=== PATIENT | male | born 1940 | race Caucasian/White ===

== ENCOUNTER → 2016-11-08 | Outpatient (CLI) | payer OTHER | LOC: BHCLAF 09:00 | PROVIDERS: ATTEND Internal Medicine Cardiovascular Disease | DX: I25.10 Atherosclerotic heart disease of native coronary artery without angina pectoris (principal); I71.2 Thoracic aortic aneurysm, without rupture; I34.0 Nonrheumatic mitral (valve) insufficiency; I35.0 Nonrheumatic aortic (valve) stenosis ==

== ENCOUNTER → 2017-01-10 | Outpatient (CLI) | payer OTHER | LOC: BHFA 11:30 | PROVIDERS: ATTEND Internal Medicine Cardiovascular Disease | DX: I71.9 Aortic aneurysm of unspecified site, without rupture (principal) ==

== ENCOUNTER → 2017-01-25 | Outpatient (CLI) | payer OTHER | LOC: BHFA 09:00 | PROVIDERS: ATTEND Internal Medicine Cardiovascular Disease | DX: I25.10 Atherosclerotic heart disease of native coronary artery without angina pectoris (principal) | CPT/HCPCS: 78452; 93017; A9500; J2785 ==

== ENCOUNTER 2017-07-25 21:06 | Observation (INO) | payer OTHER ==
--- NOTE | 2017-07-25 21:32 | CPEKG ---
Heart Rate: 65 RR Interval: 923 P-R Interval: 224 QRSD Interval: 192 QT Interval: 484 QTC Interval: 504 P [place]: 24 QRS [place]: 82 T Wave [place]: 17 EKG Severity - ABNORMAL ECG - EKG Impression: SINUS RHYTHM EKG Impression: FIRST DEGREE AV BLOCK EKG Impression: IVCD, CONSIDER ATYPICAL LBBB Electronically Signed By: Paul iJ 26-Jul-2017 06:23:00
--- NOTE | 2017-07-25 21:50 | EDPHY ---
H & P Stated Complaint: Tachycardia - Resolved, Anxiety HPI/ROS: HPI CHIEF COMPLAINT: Tachycardia, anxiety now resolved HISTORY OF PRESENT ILLNESS: This patient is a very pleasant 76-year-old male, he presents emergency room with tachycardia is resolved. Patient has significant medical history for hypertension, hyperlipidemia, and has never had a cardiac arrhythmia. Denies having heart disease. In fact he tells me has a very low calcium score. He presents emergency room after states around 830 this evening or approximately an hour and half ago he developed sudden-onset fast heart rate. He obtained his pulse ox and was reading 150 beats per minute. He could feel his heart racing but denies any other associated symptoms specifically denies shortness of breath, nausea, diaphoresis arm or neck pain or vomiting. He does report that he may have had some very mild chest tightness when he noticed his heart rate was very fast in the 150s. He reports that it was regular in the 150s. Not irregular. He did not feel lightheaded. It lasted approximately 45 minutes. And then upon arrival to the emergency room he states it went away. He denies being sick recently. He denies pleuritic pain, shortness of breath, chest pain. Denies recent illness. Past Medical History: CAD (by EBCT) LOW CALCIUM SCORE: 47 Hypertension, hyperlipidemia, thoracic aortic aneurysm 4.4. Known left bundle branch block. Aortic stenosis, mitral regurg, prostate CA Past Surgical History: Denies any recent surgery. Has had ankle surgery Social History: Denies daily use drugs alcohol tobacco. He is retired Supervisor [employer] Family History: Noncontributory ROS REVIEW OF SYSTEMS: A comprehensive 10 point review of systems is otherwise negative aside from elements mentioned in the history of present illness. Exam Constitutional appears well nontoxic, pleasant, no distress, triage nursing summary reviewed, vital signs reviewed, awake/alert. Eyes normal conjunctivae and sclera, EOMI, PERRLA. HENT normal inspection, atraumatic, moist mucus membranes, no epistaxis, neck supple/ no meningismus, no raccoon eyes. Respiratory clear to auscultation bilaterally, normal breath sounds, no respiratory distress, no wheezing. Cardiovascular rate normal, regular rhythm, no murmur, no edema, distal pulses normal. Gastrointestinal soft, non-tender, no rebound, no guarding, normal bowel sounds, no distension, no pulsatile mass. Genitourinary no CVA tenderness. Musculoskeletal no midline vertebral tenderness, full range of motion, no calf swelling, no tenderness of extremities, no meningismus, good pulses, neurovascularly intact. Skin pink, warm, & dry, no rash, skin atraumatic. Neurologic awake, alert and oriented x 3, AAOx3, moves all 4 extremities equally, motor intact, sensory intact, CN II-XII intact, normal cerebellar, normal vision, normal speech. Psychiatric normal mood/affect. Heme/Lymph/Immune no lymphadenopathy. Differential diagnosis includes but is not limited to: Cardiac arrhythmia including SVT, atrial flutter with a 2-1 block, AFib, AVR and T, V-tach, VFib, ACS, atypical chest pain, pneumothorax, pneumonia, pulmonary embolism, aortic dissection, congestive heart failure, tumor, musculoskeletal pain, esophageal pain, GERD, peptic ulcer disease, pancreatitis Medical Decision Making: Plan for this patient has no complaints at this time is resting comfortably. He had tachycardia prior to arrival. He states his regular at 150s. We will obtain blood work, EKG and place him on a director of cardiac rehabilitation. Troponin. Re-evaluate Re-evaluation: EKG interpretation by me on record in [facility] [employer] system. Impression time of EKG 0, this is sinus rhythm rate of 65. First-degree AV block present. TN interval 224. Left bundle-branch block present. 2214: I did review this patient's [facility] heart note on 01/13/2017. He was seen by Dr. Diego. 2350: Patient resting comfortably. No complaints. Discussed at length about CT angiogram of his chest with in the setting of tachycardia that is now resolved and a positive D-dimer. Additionally patient has a thoracic aortic aneurysm. After great discussion risk versus benefit of the CT scan. Patient agrees for CT angiogram of his chest this will give this information to rule out pulmonary embolism, additionally evaluate his thoracic aortic aneurysm. I think dissection and ruptured aneurysm is unlikely. CT angiogram of the chest with IV contrast called to me by Dr. Stoney Pearson. This shows no pulmonary embolism. This shows a stable aortic thoracic aneurysm of 4.3 cm. Previous scan showed 4.4 cm. Additionally there very subtle radial lucencies mainly in the sternum. Pretty much unchanged from the 2015 scan. However will notify patient about this to have outpatient follow- up. Additionally there is a left thyroid nodule that the patient is to follow- up. EKG interpretation by me on record in [facility] [employer] system. Impression time of EKG 0030. This is a repeat EKG sinus rhythm rate of 52. First-degree AV block. TN interval 236. Left bundle-branch block present. No acute ischemia. EKG is unchanged from previous EKG. 0130: This patient's 2nd troponin is 0.032. This is still below the limit of abnormal. However it has went up slightly. The patient remains hemodynamically stable no acute distress without any chest pain or shortness of breath. I had a long discussion about this and we agreed to repeat another troponin an hour. If this goes down her stays the same I will allow him to go home again he has no chest pain or shortness of breath he feels fine. This 2nd troponin was approximately a 5 hour troponin from symptom onset. 0339AM: Spoke with Dr. William Whipple, With Cardiology, discussed this case at length with him. After extensive discussion about his troponins and presentation Dr. Whipple thought it was reasonable for this patient be admitted for observation for Dr. Burton to see today. I gave the patient the option of going home or coming into the hospital the patient feels more comfortable coming the hospital given the circumstance of this whole scenario. Patient be admitted for cardiology to evaluate. The patient has been hemodynamically stable here. In sinus rhythm with a left bundle-branch block. With no chest pain. After further discussion with him he did report to me that he had some epigastric discomfort during this tachycardia event that was not captured here. He really denies chest pain he does state that he may have had some chest tightness. Plan will be for observation cardiology to evaluate. Serial troponins. 0342: Spoke with Dr. Yanes Who agrees to admit. Source: Patient - Personal History Current Tetanus Diphtheria and Acellular Pertussis (TDAP): Yes - Medical/Surgical History Hx Asthma: No Hx Chronic Respiratory Disease: No Hx Diabetes: No Hx Cardiac Disease: Yes Hx Renal Disease: No Hx Cirrhosis: No Hx Alcoholism: No Hx HIV/AIDS: No Hx Splenectomy or Spleen Trauma: No Other PMH: Aortic Annurysm, High Cholesterol, Hypertension - Social History Smoking Status: Former smoker Constitutional: Initial Vital Signs Temperature (C) 36.8 C 07/25/17 21:11 Heart Rate 67 07/25/17 21:11 Respiratory Rate 18 07/25/17 21:11 Blood Pressure 121/87 H 07/25/17 21:11 O2 Sat (%) 93 07/25/17 21:11 O2 Delivery Mode Room Air Allergies/Adverse Reactions: cat dander Allergy (Verified 07/25/17 21:09) lidocaine Allergy (Verified 07/25/17 21:09) mold Allergy (Verified 07/25/17 21:09) Home Medications: Medication Instructions Recorded Hydrochlorothiazide 08/17/11 oxyCONTIN 08/17/11 Hydrochlorothiazide 07/25/17 Losartan Potassium 07/25/17 SIMVASTATIN 07/25/17 Medical Decision Making - Diagnostics Imaging Results: Imaging Impressions Chest X-Ray 07/25/17 22:10 Impression: No acute findings in the chest. Chest/Thorax CTA 07/25/17 23:03 Impression: 1. No visible pulmonary embolus. 2. Stable mild dilatation of the ascending aorta, measuring 4.3 cm without dissection. 3. 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 4. Equivocal tiny lucent osseous lesions, with interval stability suggesting a benign etiology, however metastasis or myeloma could have a similar appearance. 5. Coronary artery atherosclerosis. 6. Minimal increase in size of a 1.9 cm left thyroid nodule. Thyroid ultrasound is recommended for further evaluation. 7. Additional findings as above. Findings discussed with Paul Ji MD 07/25/2017 at 23:52. - Data Points Laboratory Results: Laboratory Results 07/25/17 22:20 07/25/17 22:20 07/26/17 07/26/17 07/25/17 02:36 00:38 22:20 WBC RBC Hgb Hct MCV MCH MCHC RDW Plt Count MPV Neut % (Auto) Lymph % (Auto) [place] % (Auto) Eos % (Auto) Baso % (Auto) Nucleat RBC Rel Count Absolute Neuts (auto) Absolute Lymphs (auto) Absolute Monos (auto) Absolute Eos (auto) Absolute Basos (auto) Absolute Nucleated RBC Immature Gran % Immature Gran # PT INR APTT D-Dimer Sodium 137 mEq/L mEq/L (134-144) Potassium 3.8 mEq/L mEq/L (3.5-5.2) Chloride 97 mEq/L mEq/L (97-110) Carbon Dioxide 24 mEq/l mEq/l (22-31) Anion Gap 16 mEq/L mEq/L (8-16) BUN 22 mg/dL mg/dL (7-23) Creatinine 0.8 mg/dL mg/dL (0.7-1.3) Estimated GFR > 60 Glucose 90 mg/dL mg/dL (70-100) Calcium 9.5 mg/dL mg/dL (8.5-10.4) Magnesium 1.8 mg/dL mg/dL (1.6-2.3) Total Bilirubin 0.5 mg/dL mg/dL (0.1-1.4) Conjugated Bilirubin 0.0 mg/dL mg/dL (0.0-0.5) Unconjugated Bilirubin 0.5 mg/dL mg/dL (0.0-1.1) AST 32 IU/L IU/L (17-59) ALT 40 IU/L IU/L (21-72) Alkaline Phosphatase 52 IU/L IU/L (38-126) Creatine Kinase 76 IU/L IU/L (0-224) CK-MB (CK-2) Fraction 1.57 ng/mL ng/mL (0.00-3.19) Troponin I 0.036 ng/mL H ng/mL 0.032 ng/mL ng/mL < 0.012 ng/mL ng/mL (0.000-0.034) (0.000-0.034) (0.000-0.034) NT-Pro-B Natriuret Pep 136 pg/mL pg/mL (0-450) Total Protein 6.5 g/dL g/dL (6.3-8.2) Albumin 4.0 g/dL g/dL (3.5-5.0) TSH 2.530 uIU/mL uIU/mL (0.465-4.680) 07/25/17 07/25/17 22:20 22:20 WBC 5.82 10^3/uL 10^3/uL (3.80-9.50) RBC 4.55 10^6/uL 10^6/uL (4.40-6.38) Hgb 14.9 g/dL g/dL (13.7-17.5) Hct 42.2 % % (40.0-51.0) MCV 92.7 fL fL (81.5-99.8) MCH 32.7 pg pg (27.9-34.1) MCHC 35.3 g/dL g/dL (32.4-36.7) RDW 14.1 % % (11.5-15.2) Plt Count 199 10^3/uL 10^3/uL (150-400) MPV 9.9 fL fL (8.7-11.7) Neut % (Auto) 52.7 % % (39.3-74.2) Lymph % (Auto) 36.4 % % (15.0-45.0) [place] % (Auto) 8.6 % % (4.5-13.0) Eos % (Auto) 1.2 % % (0.6-7.6) Baso % (Auto) 0.9 % % (0.3-1.7) Nucleat RBC Rel Count 0.0 % % (0.0-0.2) Absolute Neuts (auto) 3.07 10^3/uL 10^3/uL (1.70-6.50) Absolute Lymphs (auto) 2.12 10^3/uL 10^3/uL (1.00-3.00) Absolute Monos (auto) 0.50 10^3/uL 10^3/uL (0.30-0.80) Absolute Eos (auto) 0.07 10^3/uL 10^3/uL (0.03-0.40) Absolute Basos (auto) 0.05 10^3/uL 10^3/uL (0.02-0.10) Absolute Nucleated RBC 0.00 10^3/uL 10^3/uL (0-0.01) Immature Gran % 0.2 % % (0.0-1.1) Immature Gran # 0.01 10^3/uL 10^3/uL (0.00-0.10) PT 13.7 SEC SEC (12.0-15.0) INR 1.06 (0.83-1.16) APTT 35.1 SEC SEC (23.0-38.0) D-Dimer 0.77 ug/mLFEU H ug/mLFEU (0.00-0.50) Sodium Potassium Chloride Carbon Dioxide Anion Gap BUN Creatinine Estimated GFR Glucose Calcium Magnesium Total Bilirubin Conjugated Bilirubin Unconjugated Bilirubin AST ALT Alkaline Phosphatase Creatine Kinase CK-MB (CK-2) Fraction Troponin I NT-Pro-B Natriuret Pep Total Protein Albumin TSH Medications Given: Discontinued Medications Sodium Chloride (Ns) 1,000 mls @ 0 mls/hr IV EDNOW ONE; Wide Open PRN Reason: Protocol Stop: 07/25/17 22:11 Last Admin: 07/25/17 23:06 Dose: 1,000 mls Departure - Departure Disposition: Home, Routine, Self-Care Clinical Impression: Tachycardia, Thyroid nodule, Troponin I above reference range Condition: Good Instructions: Thyroid Nodules (ED), Tachycardia (ED) Additional Instructions: 1. Please follow up with her primary care doctor physician about the left thyroid nodule. 2. Additionally please follow up with the radiolucency seen mainly in her sternum these are stable from 2015. 3. Return immediately to the emergency room if he develops any worsening symptoms includes chest pain, shortness of breath, fast heart rate or you have a syncopal episode. 4. I do recommend distally follow up with Cardiology. Referrals: NICOLE ARIAS [Other] - As per Instructions Jonathan Jurado MD [Non Staff Provider ()] - As per Instructions
[2017-07-25] MEDS ORDERED: NS 1,000 ML IV ONE (22:10)
[2017-07-25 22:38] LABS: % IMMATURE GRANULYOCYTES 0.2 % (0.0-1.1); ABSOLUTE IMMATURE GRANULOCYTES 0.01 10^3/uL (0.00-0.10); ADD DIFF? NO; ADD MORPH? NO; ADD SCAN? NO; ATYPICAL LYMPHOCYTE FLAG 0 (0-99); FRAGMENT RBC FLAG 0 (0-99); HEMATOCRIT 42.2 % (40.0-51.0); HEMOGLOBIN 14.9 g/dL (13.7-17.5); LEFT SHIFT FLG 0 (0-99); LIPEMIA HEMOLYSIS FLAG 90 (0-99); MEAN CELL HEMOGLOBIN 32.7 pg (27.9-34.1); MEAN CELL HEMOGLOBIN CONCENTR. 35.3 g/dL (32.4-36.7); MEAN CELL VOLUME 92.7 fL (81.5-99.8); MEAN PLATELET VOLUME 9.9 fL (8.7-11.7); PLATELET CLUMPS FLAG 0 (0-99); PLATELET COUNT 199 10^3/uL (150-400); RED BLOOD CELL COUNT 4.55 10^6/uL (4.40-6.38); RED CELL DISTRIBUTION WIDTH 14.1 % (11.5-15.2)
[2017-07-25 22:48] LABS: INR 1.06 (0.83-1.16); PROTIME(PATIENT) 13.7 SEC (12.0-15.0)
[2017-07-25 22:49] LABS: APTT 35.1 SEC (23.0-38.0)
[2017-07-25 22:50] LABS: ALANINE AMINOTRANSFERASE 40 IU/L (21-72); ALKALINE PHOSPHATASE 52 IU/L (38-126); ANION GAP 16 mEq/L (8-16); ASPARTATE AMINOTRANSFERASE 32 IU/L (17-59); BILIRUBIN,TOTAL 0.5 mg/dL (0.1-1.4); BILIRUBIN-UNCONJUGATED 0.5 mg/dL (0.0-1.1); CALCIUM 9.5 mg/dL (8.5-10.4); CARBON DIOXIDE 24 mEq/l (22-31); CHLORIDE 97 mEq/L (97-110); CREATININE 0.8 mg/dL (0.7-1.3); GLOMERULAR FILTRATION RATE > 60; GLUCOSE 90 mg/dL (70-100); MAGNESIUM 1.8 mg/dL (1.6-2.3); POTASSIUM 3.8 mEq/L (3.5-5.2); SODIUM 137 mEq/L (134-144); TOTAL PROTEIN 6.5 g/dL (6.3-8.2)
[2017-07-25 23:03] LABS: CREATINE KINASE-MB FRACTION 1.57 ng/mL (0.00-3.19); TROPONIN I < 0.012 ng/mL (0.000-0.034)
[2017-07-25] MEDS ORDERED: IOPAMIDOL (ISOVUE 370) 100 ML BTL IV ONE (23:13)
--- NOTE | 2017-07-26 00:38 | CPEKG ---
Heart Rate: 52 RR Interval: 1154 P-R Interval: 236 QRSD Interval: 186 QT Interval: 512 QTC Interval: 477 P [place]: 57 QRS [place]: -6 T Wave [place]: 45 EKG Severity - ABNORMAL ECG - EKG Impression: SINUS RHYTHM EKG Impression: FIRST DEGREE AV BLOCK EKG Impression: LEFT BUNDLE BRANCH BLOCK Electronically Signed By: Paul Ji 26-Jul-2017 06:23:00
[2017-07-26 03:01] LABS: TROPONIN I 0.036 ng/mL (0.000-0.034)
[2017-07-26] MEDS ORDERED: ONDANSETRON DISINTEGRATING 4 MG TAB PO PRN (03:39)
[2017-07-26] MEDS ORDERED: ACETAMINOPHEN 325 MG TAB PO PRN (03:39)
[2017-07-26] MEDS ORDERED: ONDANSETRON 4 MG/2 ML VIAL IVP PRN (03:39)
[2017-07-26] MEDS ORDERED: diphenhydrAMINE 25 MG CAP PO PRN (03:56)
--- NOTE | 2017-07-26 03:59 | PDGENHP ---
History and Physical - Chief Complaint Tachycardia - History of Present Illness 76 yo M w/ hx of HTN presents after stint of tachycardia. Patient was at home when he noticed a rapid heart rate. He used a portable pulse ox to note his HR was in the 150 range with normal oxygenation for about 30 minutes. This has not happened in the past and he has no past cardiac history aside from well controlled HTN and HLD. In the ED troponin kb to .036 and ECG had only known LBBB. ED physician discussed with business analyst sales operations merchandising coordinator who wished patient be admitted for observation. History Information - Allergies/Home Medication List Allergies/Adverse Reactions: cat dander Allergy (Verified 07/25/17 21:09) lidocaine Allergy (Verified 07/25/17 21:09) mold Allergy (Verified 07/25/17 21:09) Home Medications: Hydrochlorothiazide 08/17/11 [Last Taken Unknown] oxyCONTIN 08/17/11 [Last Taken Unknown] Hydrochlorothiazide 07/25/17 [Last Taken Unknown] Losartan Potassium 07/25/17 [Last Taken Unknown] SIMVASTATIN 07/25/17 [Last Taken Unknown] I have personally reviewed and updated: family history, medical history - Past Medical History hypertension, hyperlipidemia - Family History Positive for: cancer - Social History Smoking Status: Former smoker Review of Systems Review of Systems: ROS: 10pt was reviewed & negative except for what was stated in HPI & below Physical Exam Physical Exam: Temp Pulse Resp BP Pulse Ox 36.8 C 53 L 18 127/84 H 94 07/25/17 21:11 07/26/17 03:34 07/26/17 03:34 07/26/17 03:34 07/26/17 03:34 Constitutional: no apparent distress, appears nourished Eyes: PERRL, EOMI Ears, Nose, Mouth, Throat: moist mucous membranes, no oral mucosal ulcers Cardiovascular: regular rate and rhythym, no murmur, rub, or gallop, other (S4) , No JVD, No edema Respiratory: no respiratory distress, clear to auscultation Gastrointestinal: normoactive bowel sounds, soft, non-tender abdomen Skin: warm, normal color Musculoskeletal: full muscle strength, no muscle tenderness Neurologic: AAOx3, CN II-XII Intact Psychiatric: interacting appropriately, not anxious Lab Data & Imaging Review 07/25/17 22:20 07/25/17 22:20 WBC 5.82 10^3/uL (3.80-9.50) 07/25/17 22:20 RBC 4.55 10^6/uL (4.40-6.38) 07/25/17 22:20 Hgb 14.9 g/dL (13.7-17.5) 07/25/17 22:20 Hct 42.2 % (40.0-51.0) 07/25/17 22:20 MCV 92.7 fL (81.5-99.8) 07/25/17 22:20 MCH 32.7 pg (27.9-34.1) 07/25/17 22:20 MCHC 35.3 g/dL (32.4-36.7) 07/25/17 22:20 RDW 14.1 % (11.5-15.2) 07/25/17 22:20 Plt Count 199 10^3/uL (150-400) 07/25/17 22:20 MPV 9.9 fL (8.7-11.7) 07/25/17 22:20 Neut % (Auto) 52.7 % (39.3-74.2) 07/25/17 22:20 Lymph % (Auto) 36.4 % (15.0-45.0) 07/25/17 22:20 [place] % (Auto) 8.6 % (4.5-13.0) 07/25/17 22:20 Eos % (Auto) 1.2 % (0.6-7.6) 07/25/17 22:20 Baso % (Auto) 0.9 % (0.3-1.7) 07/25/17 22:20 Nucleat RBC Rel Count 0.0 % (0.0-0.2) 07/25/17 22:20 Absolute Neuts (auto) 3.07 10^3/uL (1.70-6.50) 07/25/17 22:20 Absolute Lymphs (auto) 2.12 10^3/uL (1.00-3.00) 07/25/17 22:20 Absolute Monos (auto) 0.50 10^3/uL (0.30-0.80) 07/25/17 22:20 Absolute Eos (auto) 0.07 10^3/uL (0.03-0.40) 07/25/17 22:20 Absolute Basos (auto) 0.05 10^3/uL (0.02-0.10) 07/25/17 22:20 Absolute Nucleated RBC 0.00 10^3/uL (0-0.01) 07/25/17 22:20 Immature Gran % 0.2 % (0.0-1.1) 07/25/17 22:20 Immature Gran # 0.01 10^3/uL (0.00-0.10) 07/25/17 22:20 PT 13.7 SEC (12.0-15.0) 07/25/17 22:20 INR 1.06 (0.83-1.16) 07/25/17 22:20 APTT 35.1 SEC (23.0-38.0) 07/25/17 22:20 D-Dimer 0.77 ug/mLFEU (0.00-0.50) H 07/25/17 22:20 Sodium 137 mEq/L (134-144) 07/25/17 22:20 Potassium 3.8 mEq/L (3.5-5.2) 07/25/17 22:20 Chloride 97 mEq/L (97-110) 07/25/17 22:20 Carbon Dioxide 24 mEq/l (22-31) 07/25/17 22:20 Anion Gap 16 mEq/L (8-16) 07/25/17 22:20 BUN 22 mg/dL (7-23) 07/25/17 22:20 Creatinine 0.8 mg/dL (0.7-1.3) 07/25/17 22:20 Estimated GFR > 60 07/25/17 22:20 Glucose 90 mg/dL (70-100) 07/25/17 22:20 Calcium 9.5 mg/dL (8.5-10.4) 07/25/17 22:20 Magnesium 1.8 mg/dL (1.6-2.3) 07/25/17 22:20 Total Bilirubin 0.5 mg/dL (0.1-1.4) 07/25/17 22:20 Conjugated Bilirubin 0.0 mg/dL (0.0-0.5) 07/25/17 22:20 Unconjugated Bilirubin 0.5 mg/dL (0.0-1.1) 07/25/17 22:20 AST 32 IU/L (17-59) 07/25/17 22:20 ALT 40 IU/L (21-72) 07/25/17 22:20 Alkaline Phosphatase 52 IU/L (38-126) 07/25/17 22:20 Creatine Kinase 76 IU/L (0-224) 07/25/17 22:20 CK-MB (CK-2) Fraction 1.57 ng/mL (0.00-3.19) 07/25/17 22:20 Troponin I 0.036 ng/mL (0.000-0.034) H 07/26/17 02:36 NT-Pro-B Natriuret Pep 136 pg/mL (0-450) 07/25/17 22:20 Total Protein 6.5 g/dL (6.3-8.2) 07/25/17 22:20 Albumin 4.0 g/dL (3.5-5.0) 07/25/17 22:20 TSH 2.530 uIU/mL (0.465-4.680) 07/25/17 22:20 Imaging Review: CTPE without PE, ascending aortic dilation stable, slight increase in size of thyroid nodule. Visualized and Interpreted EKG results: Yes EKG Interpretation: Positive for: left bundle branch block Assessment & Plan Assessment: 76 yo M w/ HTN and HLD admitted for observation after period of tachycardia. Plan: 1. Tachycardia - Self-limited episode of tachycardia with HR stable around 150. NSR while here with only modest elevatin of troponin to 0.06. Case discussed with cardiology service who desired admission for observation. - Monitor on telemetry - Cardiology to see in the morning 2. Elevated troponin - Likely related to above, story not clinically consistent with ACS. - Trend cardiac enzymes 3. HTN - Well controlled on home meds 4. HLD - Compliant with statin therapy 5. Thyroid nodule - Merits outpatient ultrasound evaluation 6. Ascending aortic dilation - Stable from prior imaging Diet - NPO pending cardiology evaluation Code - Full Ppx - SCDs Dispo - Admit to observation status
[2017-07-26 07:46] VITALS: RESP 18
[2017-07-26] MEDS ORDERED: LOSARTAN POTASSIUM 50 MG TAB PO SCH (10:30)
[2017-07-26] MEDS ORDERED: HYDROCHLOROTHIAZIDE 25 MG TAB PO SCH (10:30)
[2017-07-26] MEDS ORDERED: ASPIRIN 81 MG CHEWABLE TAB PO SCH (10:30)
[2017-07-26 11:28] VITALS: BP 132/84; PULSE 54; TEMP 98.3; O2SAT 93
--- NOTE | 2017-07-26 15:22 | PDCARPN ---
Cardiology Progress Note Chief Complaint: Patient with an acute bout of tachycardia (regular rhythm to rates of 150 bpm). Assessment/Plan: Assessment: Patient is a 76 y/o male with history of CAD (by MSCT), ascending aortic aneurysm (4.4 cm in the past), HTN, and HLP, who presented to [facility] ER with complaints of tachycardia noted acutely last night. Given continuation of the symptoms, the patient presented to the ER. As this process was evolving, the rapid heart rate abruptly stopped. The patient was able to assess heart rates ( and note regularity) by finger pulse oximeter. No associated symptoms of dizziness or lightheadedness. No PND or orthopnea. No dyspnea. Mild (very mild) chest tightness was noted, but subsided quickly with the termination of the tachycardia. Patient was seen by myself in January 2017 after echocardiogram ( normal aortic valve and ongoing, unchanged ascending aortic dilation to 4.4 cm) . Stress testing from January 2017 (after the patient was seen by me) without ischaemia or infarction patterns noted. There was some desire to have MPI testing, but with this recent testing from earlier this year, this testing is not indicated - especially with a lack of cardiovascular symptoms outside of tachycardia. Plan: Several options were discussed with the patient. Option 1 was no further testing. The patient could follow up with cardiology in the outpatient setting and consider further arrhythmic assessment with holter or CardioNet monitor. This option being acceptable given that this was the first time this patient had noted these symptoms. Option 2: Holter or CardioNet monitor to be set up at present, prior to discharge. further. Holter likely to be very low yield ( 24 - 48 hour assessment) given this being the first and only event of this nature for the patient. A 30 day monitor would provide further data, but if this is the first and only episode, our yield would be low as well. Along these lines, the patient might benefit from a LINQ implant. Option 3: external heart rate assessment with Apmetrixdia monitor (Interser device) for the patient to record arrhythmias on his iPhone and provide data to cardiology and/or PCP. The patient arrhythmia could be SVT or atrial flutter (2:1 block), and we will not know without capture of the arrhythmia on a monitor. Encouraged patient to drink plenty of water. Regular and routine exercise has been ongoing, and should continue. Subjective: No cardiovascular complaints today. Reviewed/Discussed With: family, hospitalist, multidisciplinary team Objective: Vital Signs (8 Hrs) Temp Pulse Resp BP Pulse Ox 07/26/17 11:27 36.8 C 54 L 18 132/84 H 93 07/26/17 07:45 36.3 C 50 L 18 125/72 H 92 Intake/Output (24 Hrs) 07/25/17 07/26/17 07/27/17 05:59 05:59 05:59 Other: Weight 87.7 kg Result Diagrams: 07/25/17 22:20 07/25/17 22:20 Cardiac Labs: Cardiac Lab Results (72 Hrs) 07/26/17 06:00 Troponin I 0.028 EKG: normal sinus rhythm with LBBB pattern Telemetry: sinus rhythm with BBB pattern - Physical Exam Constitutional: WDWN, healthy appearing, no apparent distress Eyes: PERRL, EOMI Ears, Nose, Mouth, Throat: moist mucous membranes Cardiovascular: regular rate and rhythm, no murmurs, no rubs, no gallops, No diastolic murmur, No jugular vein distention Peripheral Pulses: 2+: dorsalis-pedis (R), dorsalis-pedis (L) Respiratory: clear to auscultate bilat, no crackles, no wheezes Gastrointestinal: normoactive bowel sounds Skin: no rashes, no edema Musculoskeletal: no muscular tenderness, no joint effusions Neurologic: AAOx3, CN II-XII grossly intact Psychiatric: cooperative, interactive, following commands ICD10 Worksheet Patient Problems: Problems Problem Status Onset Tachycardia Acute Thyroid nodule Acute Troponin I above reference range Acute
--- NOTE | 2017-07-26 16:01 | GDS ---
[f rep st] DISCHARGE SUMMARY DISCHARGE DIAGNOSES: 1. Tachycardia, probable atrial flutter. 2. Hypertension. 3. Hyperlipidemia. 4. Thyroid nodule. 5. Ascending aortic aneurysm. HISTORY: The is a 76-year-old male, who presented with tachycardia with severe palpitations at home, noting his heart rate to be 150. He has never had this before. He was admitted for observation. C ardiology saw him in consultation. They discussed various options for cardiac monitoring moving forw nazanin. The patient will likely pursue an application to monitor for arrhythmias on his Iphone and forw nazanin these results to Cardiology if he does have recurrence. He is otherwise back to normal sinus rhy thm at baseline without any further issues. TSH was normal. Troponins were normal. DISCHARGE MEDICATIONS: Please see computer record for full detailed list. There are no new medicati ons given at time of hospital. DISCHARGE INSTRUCTIONS: 1. Follow up with primary care regarding left thyroid nodule. 2. Follow up with primary care regarding bone radiolucencies incidentally noted on CAT scan although these have been stable since 2015. 3. Follow up with Dr. Diego of Cardiology for further management of tachycardia episodes. Patient was seen and examined by me on the day of discharge. /[id number]
[2017-07-26] MEDS ORDERED: diphenhydrAMINE 25 MG CAP PO SCH (21:00)
[2017-07-27] MEDS ORDERED: ATORVASTATIN CALCIUM 10 MG TAB PO SCH (09:00)
[2017-07-27] MEDS ORDERED: NON-FORMULARY NEW DRUG (Simvastatin [Zocor] 20 MG) PO SCH (09:00)
== END 2017-07-26 13:02 | disposition home or self-care (01) ==
LOC: F2W 07-26 04:17
PROVIDERS: ADMIT Student in an Organized Health Care Education/Training Program; ATTEND Internal Medicine
DX: R00.0 Tachycardia, unspecified (principal); I25.10 Atherosclerotic heart disease of native coronary artery without angina pectoris; E04.1 Nontoxic single thyroid nodule; I10 Essential (primary) hypertension; E78.5 Hyperlipidemia, unspecified; I71.2 Thoracic aortic aneurysm, without rupture; I44.7 Left bundle-branch block, unspecified; Z85.46 Personal history of malignant neoplasm of prostate; Z87.891 Personal history of nicotine dependence
CPT/HCPCS: 71020; 71275; 93005; 99285; G0378; Q9967

== ENCOUNTER 2017-10-12 12:10 | Emergency (ER) | payer OTHER ==
[2017-10-12 12:17] VITALS: RESP 16; TEMP 98.2
--- NOTE | 2017-10-12 12:38 | CPEKG ---
Heart Rate: 54 RR Interval: 1111 P-R Interval: 212 QRSD Interval: 170 QT Interval: 504 QTC Interval: 478 P [place]: 0 QRS [place]: -33 T Wave [place]: 76 EKG Severity - ABNORMAL ECG - EKG Impression: SINUS RHYTHM EKG Impression: LEFT BUNDLE BRANCH BLOCK Electronically Signed By: Lesley Weaver 12-Oct-2017 15:06:41
--- NOTE | 2017-10-12 12:50 | EDPHY ---
H & P Stated Complaint: Feeling fuzzy, light headed, lethargic since 10am Time Seen by Provider: 10/12/17 12:21 HPI/ROS: CHIEF COMPLAINT: Sleepy, confused earlier HISTORY OF PRESENT ILLNESS: The patient is a 76 y/o male complaining of " feeling really fuzzy like I was having a sleeper pill" around 9:00 this morning , about 3.5 hours ago. He reports taking 25mg doxylamine pill around 02:00 this morning, which is later than when he normally takes sleeping aids. He woke up around 07:30 and by 09:00 he began to notice he seemed confused; for example he drove to the wrong place for breakfast and wrote the date on the incorrect line on a check. He did not recognize these errors until they were pointed out by his . He says, "I felt like I could have taken a nap," but chose not to sleep. He denies headache, weakness, paresthesias, vision changes, speech difficulty, dizziness, fever, chest pain, palpitations, dyspnea, recent illness , or preceding trauma/neck manipulation. He feels closer to baseline upon assessment. He had a cardiac work up last year including EKG, echocardiogram, CT angios, and Holter monitor that only showed a stable ascending aneurysm. REVIEW OF SYSTEMS: Constitutional: No fever, no chills Eyes: No visual changes ENT: No sore throat Respiratory: No cough, no shortness of breath Cardiac: No chest pain Gastrointestinal: No nausea, no vomiting, no abdominal pain Genitourinary: No hematuria, no dysuria Musculoskeletal: No leg pain or swelling Skin: No rash Neurological: No headache, no numbness, no weakness Psychiatric: No depression - Personal History Current Tetanus Diphtheria and Acellular Pertussis (TDAP): Yes - Medical/Surgical History PMH: PMH includes: 1. Left bundle branch block 2. Possible atrial flutter 3. Hypertension 4. Hyperlipidemia 5. Ascending aortic aneurysm 6. Hyperlipidemia 7. Basal cell carcinoma with excisions Prior medical records reviewed including admission 07/26/17 for palpitations. Hx Asthma: Yes Hx Chronic Respiratory Disease: No Hx Diabetes: No Hx Cardiac Disease: Yes Hx Renal Disease: No Hx Cirrhosis: No Hx Alcoholism: No Hx HIV/AIDS: No Hx Splenectomy or Spleen Trauma: No Other PMH: Aortic Aneurysm, High Cholesterol, Hypertension, bsal cell carcinoma with excisions, left ankle fx - Social History Smoking Status: Former smoker Additional Social History: . 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 - Physical Exam Exam: General Appearance: Alert, talkative, normal speech and thought process Eyes: Pupils equal and round, no conjunctival pallor or injection ENT, Mouth: Mucous membranes moist Neck: Normal inspection Respiratory: Lungs are clear to auscultation Cardiovascular: Regular rate and rhythm Gastrointestinal: Abdomen is soft and non-tender Neurological: A&O, CN II-XII intact, motor/sensory intact, normal gait Skin: Warm and dry, no rash Extremities: Nontender, no pedal edema Psychiatric: Mood and affect normal Constitutional: Initial Vital Signs Temperature (C) 36.8 C 10/12/17 12:13 Heart Rate 59 L 10/12/17 12:13 Respiratory Rate 16 10/12/17 12:13 Blood Pressure 128/82 H 10/12/17 12:13 O2 Sat (%) 95 10/12/17 12:13 O2 Delivery Mode Room Air Allergies/Adverse Reactions: cat dander Allergy (Verified 07/25/17 21:09) lidocaine Allergy (Verified 07/25/17 21:09) mold Allergy (Verified 07/25/17 21:09) Home Medications: Medication Instructions Recorded Hydrochlorothiazide [HCTZ (*)] 25 mg PO DAILY 07/25/17 Losartan Potassium [Cozaar 50 mg 100 mg PO DAILY 07/25/17 (*)] Simvastatin [Zocor] 20 mg PO DAILY 07/25/17 Aspirin [Aspirin 81mg (*)] 81 mg PO DAILY 07/26/17 Multivitamins [Multivitamin (*)] 1 each PO DAILY 07/26/17 Medical Decision Making ED Course/Re-evaluation: This is a 76 y/o male who presents with sleepiness and confusion he noticed about 8 hours after taking doxylamine for sleep around 02:00. His symptoms have mostly resolved upon assessment. Most likely medicaiton effect. Doubt TIA/CVA. Normal neuro exam. Discussed risks and benefits of head CT imaging with the patient and given his normal exam and resolving symptoms, he declined this. Plan for IV, labs, EKG. The 12 lead EKG was interpreted by myself. Sinus rhythm rate 54. LBBB. See hard copy and/or "tracemaster" electronic copy for interpretation. Labs are unremarkable. Reassessed patient and discussed findings. Symptoms align with the sleeping aid he used early this morning. He is completely asymptomatic at this time. Neuro exam remains normal. I've cautioned against using sleeping aids late in the night and against driving until effects have completely worn off. Recommended PCP follow up for any continuing issues. Return precautions discussed. He is comfortable with plan for discharge. Differential Diagnosis: includes though not limited to TIA, CVA, hypoglycemia, ICH, hyponatremia, hypotension - Data Points Laboratory Results: Laboratory Results 10/12/17 12:40 10/12/17 12:40 Departure - Departure Disposition: Home, Routine, Self-Care Clinical Impression: Sleepiness, Transient confusion Condition: Good Instructions: Altered Mental Status (ED), Fatigue (ED) Additional Instructions: I recommend taking any sleeping aids earlier in the night. If you do take them again in the instructor decorating you should not drive or participate in other activities that could put you or others at risk until sleeping aid effects have completely worn off. Please follow up for recurrent symptoms over the next 2-3 days. Return to the ED for severe headache, weakness or numbness on one side of your body, vision changes, speech difficulty, or other worsening of condition. Referrals: TONJA ARIAS [Primary Care Provider] - As per Instructions Report Scribed for: Lesley Weaver Report Scribed by: Wendy Ortega Date of Report: 10/12/17 Time of Report: 12:51 Physician Review and Approval Statement: 10/12/17 12:51 Portions of this note were transcribed by a registered medical assistant. I personally performed a history, physical exam, medical decision making, and confirmed accuracy of information the transcribed note.
[2017-10-12 12:58] LABS: PLATELET COUNT 208 10^3/uL (150-400)
[2017-10-12 13:49] VITALS: BP 136/79; PULSE 56; O2SAT 98
== END 2017-10-12 13:53 | disposition home or self-care (01) ==
DX: R41.0 Disorientation, unspecified (principal); R40.0 Somnolence; I10 Essential (primary) hypertension; J45.909 Unspecified asthma, uncomplicated; Z79.82 Long term (current) use of aspirin; Z87.891 Personal history of nicotine dependence

== ENCOUNTER 2018-02-09 13:54 | Emergency (ER) | payer OTHER ==
[2018-02-09 14:05] VITALS: BP 123/95
--- NOTE | 2018-02-09 14:20 | EDPHY ---
H & P Time Seen by Provider: 02/09/18 14:17 HPI/ROS: Chief complaint. Rapid heart rate HPI. 77-year-old male presents with rapid heart beat. It began abruptly about 1 hr ago. He has some fullness in his epigastrium and sense of anxiety. No shortness of breath. He had a similar episode 6 months ago and it stopped at the time of arrival in the emergency department it was never caught. He wore a Holter monitor without finding any arrhythmia. Patient was well he has not had fever or cough. No unusual leg pain or swelling. ROS Constitutional. no fever/chills, no weakness Eyes. no problems with vision ENT. no sore throat, no nasal drainage Cardiovascular. No chest pain but rapid heart rate Respiratory. no shortness of breath, no cough Abdominal. no abdominal pain, no nausea/vomiting, no diarrhea . no problems urinating MS. no calf pain/swelling, no neck/back pain, no joint pain Skin. no rash Lymph. no swollen glands Neuro. no headache, no dizziness, no difficulty walking or with speech Past Medical/Surgical History: Past medical history is significant for aortic aneurysm, dyslipidemia, hypertension, basal cell carcinoma Social History: , nonsmoker, no alcohol Smoking Status: Former smoker Physical Exam: General Appearance: Alert well-developed male moderate distress vital signs significant for heart rate of about 150 Eyes: Pupils equal and round no pallor or injection. ENT, Mouth: Mucous membranes are moist. Respiratory: There are no retractions, lungs are clear to auscultation. Cardiovascular: Regular rate and rhythm with tachycardia Gastrointestinal: Abdomen is soft and nontender, no masses, bowel sounds normal. Neurological: Awake and alert, sensory and motor exams grossly normal. Skin: Warm and dry, no rashes. Musculoskeletal: Neck is supple nontender. Extremities symmetrical, full range of motion. Psychiatric: Patient is oriented X 3, there is no agitation. Constitutional: Initial Vital Signs Temperature (C) 36.4 C 02/09/18 14:03 Heart Rate 149 H 02/09/18 14:03 Respiratory Rate 16 02/09/18 14:03 Blood Pressure 123/95 H 02/09/18 14:03 O2 Sat (%) 93 02/09/18 14:03 O2 Delivery Mode Room Air Allergies/Adverse Reactions: cat dander Allergy (Verified 02/09/18 14:02) mold Allergy (Verified 02/09/18 14:02) Home Medications: Medication Instructions Recorded Hydrochlorothiazide [HCTZ (*)] 25 mg PO DAILY 07/25/17 Losartan Potassium [Cozaar 50 mg 100 mg PO DAILY 07/25/17 (*)] Simvastatin [Zocor] 20 mg PO DAILY 07/25/17 Aspirin [Aspirin 81mg (*)] 81 mg PO DAILY 07/26/17 Medical Decision Making - Diagnostics EKG Interpretation: EKG interpreted by me shows what appears to be sinus tachycardia though there is wide-based complexes. Rate is 153 Post conversion EKG interpreted by me shows normal sinus rhythm with first- degree AV block and left bundle branch block. No significant ST elevation or depression. Imaging Results: Imaging Impressions Chest X-Ray 02/09/18 14:25 Impression: Basilar atelectasis and probable airways disease. Chest/Thorax CTA 02/09/18 15:48 Impression: 1. No evidence of thrombopulmonary embolic disease. 2. Mild dilatation is seen in the thoracic aorta with a stable appearance and no evidence for dissection. 3. Stable left thyroid gland nodule from the most recent exam. Recommendation previously was for ultrasound evaluation. 4. Other chronic findings as above. Results called and discussed with Dr. Adonis Pappas on February 09, 2018 at 1629 hours. Chest x-ray and interpreted by me shows atelectasis but No pneumonia CT angiogram reviewed by me and discussed with Dr. Weinberg shows no evidence of pulmonary embolus. Mild dilatation of the thoracic aorta is seen with stable appearance Procedures: IV normal saline monitor Prior to administration of adenosine patient converts to normal sinus rhythm ED Course/Re-evaluation: Elevated D-dimer. Patient and I discussed this and recommendation for CT angiogram. He expresses understanding and agreement I consulted discussed case Dr. William Whpiple who recommends adenosine however the patient converted to sinus rhythm prior to adenosine administration On re-evaluation at 5:15 a.m. Patient is stable. He is in sinus rhythm with a controlled heart rate. Patient and I discussed treatment plan including criteria for return and importance of follow-up and further evaluation. He expresses understanding and agreement Differential Diagnosis: Likely this is SVT with first-degree AV block and left bundle branch block causing an abnormally wide QRS complex. No evidence of atrial fibrillation, pulmonary embolus, acute coronary syndrome - Data Points Laboratory Results: Laboratory Results 02/09/18 14:25 02/09/18 14:25 02/09/1818 02/09/18 14:25 14:25 14:25 WBC 9.47 10^3/uL 10^3/uL (3.80-9.50) RBC 4.89 10^6/uL 10^6/uL (4.40-6.38) Hgb 15.8 g/dL g/dL (13.7-17.5) Hct 44.8 % % (40.0-51.0) MCV 91.6 fL fL (81.5-99.8) MCH 32.3 pg pg (27.9-34.1) MCHC 35.3 g/dL g/dL (32.4-36.7) RDW 13.7 % % (11.5-15.2) Plt Count 219 10^3/uL 10^3/uL (150-400) MPV 10.4 fL fL (8.7-11.7) Neut % (Auto) 65.0 % % (39.3-74.2) Lymph % (Auto) 24.1 % % (15.0-45.0) [place] % (Auto) 8.7 % % (4.5-13.0) Eos % (Auto) 1.4 % % (0.6-7.6) Baso % (Auto) 0.5 % % (0.3-1.7) Nucleat RBC Rel Count 0.0 % % (0.0-0.2) Absolute Neuts (auto) 6.16 10^3/uL 10^3/uL (1.70-6.50) Absolute Lymphs (auto) 2.28 10^3/uL 10^3/uL (1.00-3.00) Absolute Monos (auto) 0.82 10^3/uL H 10^3/uL (0.30-0.80) Absolute Eos (auto) 0.13 10^3/uL 10^3/uL (0.03-0.40) Absolute Basos (auto) 0.05 10^3/uL 10^3/uL (0.02-0.10) Absolute Nucleated RBC 0.00 10^3/uL 10^3/uL (0-0.01) Immature Gran % 0.3 % % (0.0-1.1) Immature Gran # 0.03 10^3/uL 10^3/uL (0.00-0.10) PT 12.6 SEC SEC (12.0-15.0) INR 0.92 (0.83-1.16) APTT 33.7 SEC SEC (23.0-38.0) D-Dimer 0.98 ug/mLFEU H ug/mLFEU (0.00-0.50) Sodium 137 mEq/L mEq/L (135-145) Potassium 4.2 mEq/L mEq/L (3.3-5.0) Chloride 102 mEq/L mEq/L (97-110) Carbon Dioxide 25 mEq/l mEq/l (22-31) Anion Gap 10 mEq/L mEq/L (8-16) BUN 17 mg/dL mg/dL (7-23) Creatinine 0.8 mg/dL mg/dL (0.7-1.3) Estimated GFR > 60 Glucose 120 mg/dL H mg/dL (70-100) Calcium 9.3 mg/dL mg/dL (8.5-10.4) POC Troponin I 02/09/18 14:22 WBC RBC Hgb Hct MCV MCH MCHC RDW Plt Count MPV Neut % (Auto) Lymph % (Auto) [place] % (Auto) Eos % (Auto) Baso % (Auto) Nucleat RBC Rel Count Absolute Neuts (auto) Absolute Lymphs (auto) Absolute Monos (auto) Absolute Eos (auto) Absolute Basos (auto) Absolute Nucleated RBC Immature Gran % Immature Gran # PT INR APTT D-Dimer Sodium Potassium Chloride Carbon Dioxide Anion Gap BUN Creatinine Estimated GFR Glucose Calcium POC Troponin I 0.01 ng/mL ng/mL (0.00-0.08) Medications Given: Discontinued Medications Adenosine (Adenosine) 6 mg IVP EDNOW ONE Stop: 02/09/18 14:26 Last Admin: 02/09/18 14:37 Dose: Not Given Sodium Chloride (Ns) 1,000 mls @ 0 mls/hr IV EDNOW ONE; Wide Open PRN Reason: Protocol Stop: 02/09/18 14:26 Last Admin: 02/09/18 15:24 Dose: 1,000 mls Point of Care Test Results: Chemistry 02/09/18 14:22 POC Troponin I 0.01 ng/mL ng/mL (0.00-0.08) Departure - Departure Disposition: Home, Routine, Self-Care Clinical Impression: Supraventricular tachycardia Condition: Good Instructions: Supraventricular Tachycardia (ED) Additional Instructions: Cardiologists called and would like you to keep an appointment next Monday at 1:[address] [place] [address] Cunningham for discussion of ablation. Alternative this is to follow up early next week for re-evaluation with Dr. Diego Easy activity rest of today. Return for worsening symptoms Referrals: TONJA ARIAS [Primary Care Provider] - As per Instructions Titus Cunningham MD [Medical Doctor] - As per Instructions Jonathan Diego MD [Medical Doctor] - As per Instructions
[2018-02-09] MEDS ORDERED: ADENOSINE 6 MG/2 ML VIAL IVP ONE (14:25)
[2018-02-09] MEDS ORDERED: NS 1,000 ML IV ONE (14:25)
--- NOTE | 2018-02-09 14:29 | CPEKG ---
Heart Rate: 153 RR Interval: 392 QRSD Interval: 152 QT Interval: 356 QTC Interval: 569 P [place]: 0 QRS [place]: -39 T Wave [place]: 46 EKG Severity - ABNORMAL ECG - EKG Impression: EXTREME TACHYCARDIA WITH WIDE COMPLEX, NO FURTHER RHYTHM ANALYSIS ATTEMPTED Electronically Signed By: Adonis Pappas 09-Feb-2018 15:39:16
--- NOTE | 2018-02-09 14:36 | CPEKG ---
Heart Rate: 65 RR Interval: 923 P-R Interval: 240 QRSD Interval: 174 QT Interval: 460 QTC Interval: 479 P [place]: 40 QRS [place]: -19 T Wave [place]: 70 EKG Severity - ABNORMAL ECG - EKG Impression: SINUS RHYTHM EKG Impression: FIRST DEGREE AV BLOCK EKG Impression: LEFT BUNDLE BRANCH BLOCK Electronically Signed By: Adonis Pappas 09-Feb-2018 15:39:12
[2018-02-09 14:50] LABS: PLATELET COUNT 219 10^3/uL (150-400)
[2018-02-09 15:02] LABS: INR 0.92 (0.83-1.16); PROTIME(PATIENT) 12.6 SEC (12.0-15.0)
[2018-02-09] MEDS ORDERED: IOPAMIDOL (ISOVUE 370) 100 ML BTL IV ONE (15:50)
== END 2018-02-09 17:44 | disposition home or self-care (01) ==
DX: I47.1 Supraventricular tachycardia (principal); I10 Essential (primary) hypertension; E86.9 Volume depletion, unspecified; Z79.82 Long term (current) use of aspirin; Z87.891 Personal history of nicotine dependence
CPT/HCPCS: 71045; 71275; 93005; 96360; 99285; Q9967; 84484-PO; J0153

== ENCOUNTER → 2018-02-14 | Outpatient (CLI) | payer OTHER | LOC: BHLMT 13:05 | PROVIDERS: ATTEND Internal Medicine Cardiovascular Disease | DX: R94.31 Abnormal electrocardiogram [ECG] [EKG] (principal) ==

== ENCOUNTER → 2018-08-31 | Outpatient (CLI) | payer OTHER | LOC: BHFA 11:30 | PROVIDERS: ATTEND Internal Medicine Cardiovascular Disease | DX: I71.9 Aortic aneurysm of unspecified site, without rupture (principal) ==